=== PATIENT | female | born 2000 ===

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

== ENCOUNTER 2018-08-13 23:31 | Emergency (ER) | payer MEDICAID ==
[2018-08-13 23:42] VITALS: RESP 16; O2SAT 98
[2018-08-14] MEDS ORDERED: Albuterol-Ipratrop 3 mg / 0.5 (3 ml) UD IH STA (00:28)
--- NOTE | 2018-08-14 00:28 | ED PDOC ---
HPI: CCC, URI, Sore Throat Time Seen by Provider: 08/13/18 23:58 Chief Complaint (Nursing): Dizziness/Lightheaded Chief Complaint (Provider): cough, congestion History Per: Patient History/Exam Limitations: no limitations Onset/Duration Of Symptoms: Days (1 weeks) Associated Symptoms: Cough, Sputum, Nasal Congestion Additional Complaint(s): 18 y/o female presents for evaluation of "painful" cough and congestion x 1 week. Associated headache x 3 days. Denies fever, vomiting, chest pain, shortness of breath, palpitations, abdominal pain, changes in bowel movements, urinary symptoms, recent travel, sick contacts. Past Medical History Reviewed: Historical Data, Nursing Documentation, Vital Signs Vital Signs: Last Vital Signs Temp 98.4 F 08/13/18 23:40 Pulse 96 H 08/13/18 23:40 Resp 16 08/13/18 23:40 BP 123/75 08/13/18 23:40 Pulse Ox 98 08/13/18 23:40 - Medical History PMH: No Chronic Diseases - Surgical History Surgical History: Appendectomy (2011) - Family History Family History: States: Unknown Family Hx - Home Medications Home Medications: Ambulatory Orders Medication Instructions Recorded Dicyclomine [Bentyl] 20 mg PO BID PRN #30 tab 05/29/17 Famotidine [Pepcid] 40 mg PO DAILY PRN #14 tab 05/29/17 Ondansetron ODT [Zofran ODT] 1 odt PO Q6 PRN #30 odt 05/29/17 Famotidine [Pepcid] 40 mg PO DAILY PRN #10 tablet 07/19/18 Naproxen 500 mg PO BID PRN #20 tab 07/19/18 Albuterol HFA [Ventolin HFA 90 1 puff IH Q4 PRN #1 inh 08/14/18 mcg/actuation (8 g)] Fluticasone Nasal [Flonase] 1 actuation NS BID #1 bottle 08/14/18 Guaifenesin/Pseudoephedrne HCl 1 - 2 tab PO Q12 PRN #20 ter 08/14/18 [Mucinex D 600 mg-60 mg] Ibuprofen [Motrin Tab] 1 tab PO Q6 PRN #15 tab 08/14/18 - Allergies Allergies/Adverse Reactions: Allergies Allergy/AdvReac Type Severity Reaction Status Date / Time No Known Allergies Allergy Verified 08/13/18 23:40 Review of Systems ROS Statement: Except As Marked, All Systems Reviewed And Found Negative ENT: Positive for: Nose Congestion Respiratory: Positive for: Cough Neurological: Positive for: Headache Physical Exam - Reviewed Nursing Documentation Reviewed: Yes Vital Signs Reviewed: Yes - Physical Exam Appears: Positive for: Well, Non-toxic, No Acute Distress Head Exam: Positive for: ATRAUMATIC, NORMAL INSPECTION, NORMOCEPHALIC Skin: Positive for: Normal Color Eye Exam: Positive for: Normal appearance ENT: Positive for: Nasal Congestion Cardiovascular/Chest: Positive for: Regular Rate, Rhythm Respiratory: Positive for: Normal Breath Sounds Gastrointestinal/Abdominal: Positive for: Normal Exam Back: Positive for: Normal Inspection Extremity: Positive for: Normal ROM Neurologic/Psych: Positive for: Alert, Oriented (x3) - ECG O2 Sat by Pulse Oximetry: 98 - Progress ED Course And Treament: flu, ibuprofen, duoneb Patient educated on findings, discharged with rx flonase, mucinex D, albuterol HFA, ibuprofen Advised fluids, rest Follow up PMD within 2-3 days Return precautions given Disposition - Clinical Impression Clinical Impression: Upper respiratory infection - Patient ED Disposition Is Patient to be Admitted: No Counseled Patient/Family Regarding: Studies Performed, Diagnosis, Need For Followup, Rx Given - Disposition Disposition: Routine/Home Disposition Time: 01:08 Condition: IMPROVED Prescriptions: Albuterol HFA [Ventolin HFA 90 mcg/actuation (8 g)] 1 puff IH Q4 PRN #1 inh PRN Reason: Wheezing Fluticasone Nasal [Flonase] 1 actuation NS BID #1 bottle Guaifenesin/Pseudoephedrne HCl [Mucinex D 600 mg-60 mg] 1 - 2 tab PO Q12 PRN #20 ter PRN Reason: congestion Ibuprofen [Motrin Tab] 1 tab PO Q6 PRN #15 tab PRN Reason: Pain, Moderate (4-7) Instructions: Viral Upper Respiratory Infection, Adult (DC) Forms: [employer] (Afghan)
[2018-08-14] MEDS ORDERED: Albuterol-Ipratrop 3 mg / 0.5 (3 ml) UD ONE (00:42)
[2018-08-14 01:25] VITALS: BP 103/57; PULSE 95; TEMP 98.6
== END 2018-08-14 01:30 | disposition home or self-care (01) ==
LOC: H.ER 23:31
DX: J06.9 Acute upper respiratory infection, unspecified (principal)

== ENCOUNTER 2018-09-25 14:54 | Emergency (ER) | payer MEDICAID ==
[2018-09-25] MEDS ORDERED: Alum-Mag Hydrox-Simethicone Susp (30 mL) PO STA (16:29)
--- NOTE | 2018-09-25 16:33 | ED PDOC ---
HPI: Abdomen Time Seen by Provider: 09/25/18 16:23 Chief Complaint (Nursing): Abdominal Pain Chief Complaint (Provider): Abdominal Pain History Per: Patient History/Exam Limitations: no limitations Onset/Duration Of Symptoms: Days (x1) Current Symptoms Are (Timing): Still Present Location Of Pain/Discomfort: Epigastric, LUQ Additional Complaint(s): Segundo Hubbard is a 18 year old female with a past medical history of migraines who is presenting to the ED for evaluation of left sided epigastric pain and chest pain onset yesterday. Patient states that she also experienced a nose bleed yesterday as well as a headache, similar to past episodes, and dizziness. She reports mild difficulty breathing and states that she took Motrin for pain. Chest pain is non-pleuritic and non-exertional. Of note, patient is currently on her period and also requesting a work note. PMD: none provided Past Medical History Reviewed: Historical Data, Nursing Documentation, Vital Signs Vital Signs: Last Vital Signs Temp 98.3 F 09/25/18 15:23 Pulse 68 09/25/18 15:23 Resp 18 09/25/18 15:23 BP 112/60 09/25/18 15:23 Pulse Ox 98 09/25/18 15:23 - Medical History PMH: Migraine - Surgical History Surgical History: Appendectomy (2011) - Family History Family History: States: Unknown Family Hx - Social History Current smoker - smoking cessation education provided: No Alcohol: Social Drugs: Denies - Home Medications Home Medications: Ambulatory Orders Medication Instructions Recorded Dicyclomine [Bentyl] 20 mg PO BID PRN #30 tab 05/29/17 Famotidine [Pepcid] 40 mg PO DAILY PRN #14 tab 05/29/17 Ondansetron ODT [Zofran ODT] 1 odt PO Q6 PRN #30 odt 05/29/17 Naproxen 500 mg PO BID PRN #20 tab 07/19/18 Albuterol HFA [Ventolin HFA 90 1 puff IH Q4 PRN #1 inh 08/14/18 mcg/actuation (8 g)] Fluticasone Nasal [Flonase] 1 actuation NS BID #1 bottle 08/14/18 Guaifenesin/Pseudoephedrne HCl 1 - 2 tab PO Q12 PRN #20 ter 08/14/18 [Mucinex D 600 mg-60 mg] Ibuprofen [Motrin Tab] 1 tab PO Q6 PRN #15 tab 08/14/18 Famotidine [Pepcid] 40 mg PO DAILY PRN #10 tablet 09/25/18 - Allergies Allergies/Adverse Reactions: Allergies Allergy/AdvReac Type Severity Reaction Status Date / Time No Known Allergies Allergy Verified 08/13/18 23:40 Review of Systems ROS Statement: Except As Marked, All Systems Reviewed And Found Negative Cardiovascular: Positive for: Chest Pain Respiratory: Positive for: Shortness of Breath Gastrointestinal: Positive for: Abdominal Pain Neurological: Positive for: Headache, Dizziness Physical Exam - Reviewed Nursing Documentation Reviewed: Yes Vital Signs Reviewed: Yes - Physical Exam Appears: Positive for: Non-toxic, No Acute Distress Head Exam: Positive for: ATRAUMATIC, NORMAL INSPECTION, NORMOCEPHALIC Skin: Positive for: Normal Color, Warm, DRY Eye Exam: Positive for: EOMI, Normal appearance, PERRL ENT: Positive for: Normal ENT Inspection Neck: Positive for: Normal, Painless ROM, Supple Cardiovascular/Chest: Positive for: Regular Rate, Rhythm. Negative for: Murmur Respiratory: Positive for: Normal Breath Sounds. Negative for: Respiratory Distress Gastrointestinal/Abdominal: Positive for: Soft, Tenderness (mild epigastric tenderness) Back: Positive for: Normal Inspection. Negative for: L CVA Tenderness, R CVA Tenderness, Vertebral Tenderness Extremity: Positive for: Normal ROM. Negative for: Deformity, Swelling Neurologic/Psych: Positive for: Alert, Oriented. Negative for: Motor/Sensory Deficits - Laboratory Results Result Diagrams: 09/25/18 16:56 09/25/18 16:56 - ECG O2 Sat by Pulse Oximetry: 98 (RA) Pulse Ox Interpretation: Normal - Progress Re-evaluation Time: 19:53 Condition: Re-examined, Improved Medical Decision Making Medical Decision Making: Time: 16:29 Impression: abdominal pain, associated headache Differentials: Migraine, gastritis, pancreatitis, biliary disease, rule out UTI Plan: --CMP --Lipase --ED Urine --ED Urine Dipstick --CBC --Lidocaine 15 ml PO --Maalox 30 ml PO --Pepcid 20 mg IVP --Reglan 50 ml IVPB Scribe Attestation: Documented by, Mayelin Menchaca acting as a scribe for Kathya Smalls MD. Provider Scribe Attestation: All medical record entries made by the Scribe were at my direction and personally dictated by me. I have reviewed the chart and agree that the record accurately reflects my personal performance of the history, physical exam, medical decision making, and the department course for this patient. I have also personally directed, reviewed, and agree with the discharge instructions and disposition. Disposition - Clinical Impression Clinical Impression: Headache, Abdominal pain - Patient ED Disposition Is Patient to be Admitted: No Doctor Will See Patient In The: Office Counseled Patient/Family Regarding: Studies Performed, Diagnosis, Need For Followup - Disposition Referrals: [facility] [Outside] Disposition: Routine/Home Disposition Time: 19:54 Condition: GOOD Additional Instructions: SEGUNDO HUBBARD, thank you for letting us take care of you today. Your provider was Kathya Smalls MD and you were treated for HEAD/ABD PAIN, NOSE BLEED. The emergency medical care you received today was directed at your acute sy mptoms. If you were prescribed any medication, please fill it and take as directed. It may take several days for your symptoms to resolve. Return to the Emergency Department if your symptoms worsen, do not improve, or if you have any other problems. Please contact your doctor or call one of the physicians/clinics you have been referred to that are listed on the Patient Visit Information form that is included in your discharge packet. Bring any paperwork you were given at discharge with you along with any medications you are taking to your follow up visit. Our treatment cannot replace ongoing medical care by a primary care provider outside of the emergency department. Thank you for allowing the [facility] team to be part of your care today. If you had an X-Ray or CT scan: A Radiologist will review the ED reading if any change in treatment is needed we will contact you. If you had a blood, urine, or wound culture: It will take several days for the results, if any change in treatment is needed we will contact you. If you had an STI test: It will take 48 hours for the results. Please call after 1 week if you have not heard back. Prescriptions: Famotidine [Pepcid] 40 mg PO DAILY PRN #10 tablet PRN Reason: Dyspepsia Instructions: Migraine Headache (DC), Stomach Ache and Stomach Upset
[2018-09-25 17:06] LABS: BASO % 0.8 % (0.0-2.0); EOS # 0.2 K/uL (0.0-0.7); EOS % 4.6 % (0.0-4.0); HEMOGLOBIN 11.4 g/dL (12.0-16.0); LYMPH # 1.7 K/uL (1.0-4.3); LYMPH % 33.2 % (20.0-40.0); MEAN CELL VOLUME 98.3 fl (81.0-99.0); MEAN CORPUSCULAR HGB CONC 34.6 g/dL (33.0-37.0); MONO # 0.4 K/uL (0.0-0.8); MONO % 7.3 % (0.0-10.0); NEUT # 2.7 K/uL (1.8-7.0); NEUT % 54.1 % (50.0-75.0); RBC 3.34 Mil/uL (3.80-5.20); RED CELL DISTRIBUTION WIDTH 12.3 % (11.5-14.5); WHITE BLOOD COUNT 5.1 K/uL (4.8-10.8)
[2018-09-25 17:33] LABS: ALB/GLOB RATIO 1.2 (1.0-2.1); ALBUMIN 3.8 g/dL (3.5-5.0); ALT/SGPT 18 U/L (9-52); AST/SGOT 20 U/L (14-36); BLOOD UREA NITROGEN 16 mg/dl (7-17); CALCIUM 9.1 mg/dL (8.4-10.2); GFR NON-AFRICAN AMERICAN > 60; LIPASE 66 U/L (23-300)
[2018-09-25] MEDS ORDERED: Alum-Mag Hydrox-Simethicone Susp (30 mL) ONE (17:44)
[2018-09-25 20:11] VITALS: BP 106/60; PULSE 65; RESP 16; TEMP 98.7; O2SAT 99
== END 2018-09-25 20:06 | disposition home or self-care (01) ==
LOC: H.ER 14:54
DX: R51 Headache (principal); R10.9 Unspecified abdominal pain
CPT/HCPCS: 80053; 81025; 83690; 85025; 96374; 99283; J2765

== ENCOUNTER 2018-10-04 20:15 | Emergency (ER) | payer MEDICAID, OTHER ==
--- NOTE | 2018-10-04 20:38 | ED PDOC ---
HPI: Abdomen Time Seen by Provider: 10/04/18 20:26 Chief Complaint (Nursing): Abdominal Pain Chief Complaint (Provider): abdominal pain History Per: Patient History/Exam Limitations: no limitations Onset/Duration Of Symptoms: Days (2 weeks) Current Symptoms Are (Timing): Still Present Location Of Pain/Discomfort: RUQ, Epigastric, LUQ Associated Symptoms: Nausea Last Bowel Movement: Yesterday Additional Complaint(s): 18 y/o female presents for evaluation of upper abdominal pain x 2 weeks. P atient states pain radiates up into center of chest, worsened by food, with associated nausea. Patient states she was seen in ED for similar 2 weeks ago and prescribed Pepcid daily, which is not helping. Denies fever, vomiting, shortness of breath, palpitations, changes in bowel movements, urinary symptoms. Patient has not followed up with a doctor for symptoms thus far. Past Medical History Reviewed: Historical Data, Nursing Documentation, Vital Signs Vital Signs: Last Vital Signs Temp 98.2 F 10/04/18 20:24 Pulse 80 10/04/18 20:24 Resp 16 10/04/18 20:24 BP 109/58 L 10/04/18 20:24 Pulse Ox 100 10/04/18 20:24 - Medical History PMH: Migraine - Surgical History Surgical History: Appendectomy (2011) - Family History Family History: States: Unknown Family Hx - Living Arrangements Living Arrangements: With Family - Home Medications Home Medications: Ambulatory Orders Medication Instructions Recorded Dicyclomine [Bentyl] 20 mg PO BID PRN #30 tab 05/29/17 Famotidine [Pepcid] 40 mg PO DAILY PRN #14 tab 05/29/17 Ondansetron ODT [Zofran ODT] 1 odt PO Q6 PRN #30 odt 05/29/17 Naproxen 500 mg PO BID PRN #20 tab 07/19/18 Albuterol HFA [Ventolin HFA 90 1 puff IH Q4 PRN #1 inh 08/14/18 mcg/actuation (8 g)] Fluticasone Nasal [Flonase] 1 actuation NS BID #1 bottle 08/14/18 Guaifenesin/Pseudoephedrne HCl 1 - 2 tab PO Q12 PRN #20 ter 08/14/18 [Mucinex D 600 mg-60 mg] Ibuprofen [Motrin Tab] 1 tab PO Q6 PRN #15 tab 08/14/18 Famotidine [Pepcid] 40 mg PO DAILY PRN #10 tablet 09/25/18 Esomeprazole Magnesium [Nexium] 20 mg PO DAILY #10 capsule. 10/04/18 Ondansetron [Zofran] 4 mg PO Q8H PRN #10 tab 10/04/18 - Allergies Allergies/Adverse Reactions: Allergies Allergy/AdvReac Type Severity Reaction Status Date / Time No Known Allergies Allergy Verified 10/04/18 20:29 Review of Systems ROS Statement: Except As Marked, All Systems Reviewed And Found Negative Cardiovascular: Positive for: Chest Pain Gastrointestinal: Positive for: Nausea, Abdominal Pain Physical Exam - Reviewed Nursing Documentation Reviewed: Yes Vital Signs Reviewed: Yes - Physical Exam Appears: Positive for: Well, Non-toxic, No Acute Distress Head Exam: Positive for: ATRAUMATIC, NORMAL INSPECTION, NORMOCEPHALIC Skin: Positive for: Normal Color Eye Exam: Positive for: Normal appearance ENT: Positive for: Normal ENT Inspection Cardiovascular/Chest: Positive for: Regular Rate, Rhythm Respiratory: Positive for: Normal Breath Sounds Gastrointestinal/Abdominal: Positive for: Bowel Sounds, Soft, Tenderness (epigastric, RUQ, LUQ) Back: Positive for: Normal Inspection Extremity: Positive for: Normal ROM Neurologic/Psych: Positive for: Alert, Oriented (x3) - Laboratory Results Result Diagrams: 10/04/18 21:18 10/04/18 21:18 - ECG O2 Sat by Pulse Oximetry: 100 - Progress ED Course And Treament: -cbc -cmp -lipase -urinalysis -IV pepcid -IV zofran -IV toradol -right upper quadrant u/s Clinical history: Right upper quadrant pain. Findings: The pancreas is limited in visualization secondary to overlying bowel gas, but appears grossly unremarkable. There is normal portal venous blood flow. The liver demonstrates uniform echotexture and echogenicity, with no mass lesions. The gallbladder is unremarkable. The common bile duct measures 3 mm and is within normal limits. The right kidney measures 9.1 cm in length and is unremarkable. There is no ascites. Impression: Unremarkable ultrasound examination of the right upper quadrant. On re-eval, patient resting comfortably. States pain improved Patient educated on findings, discharged with rx Nexium, Zofran Advised diet modification Follow up PMD/GI Return precautions given Disposition - Clinical Impression Clinical Impression: Abdominal pain - Patient ED Disposition Is Patient to be Admitted: No Counseled Patient/Family Regarding: Studies Performed, Diagnosis, Need For Followup, Rx Given - Disposition Referrals: [facility] [Outside] Disposition: Routine/Home Disposition Time: 22:04 Condition: IMPROVED Prescriptions: Esomeprazole Magnesium [Nexium] 20 mg PO DAILY #10 capsule. Ondansetron [Zofran] 4 mg PO Q8H PRN #10 tab PRN Reason: Nausea/Vomiting Instructions: Acute Abdomen (Belly Pain), Adult (DC)
[2018-10-04 21:12] LABS: SQUAMOUS EPITHIAL 3 /hpf (0-5); URINE BILIRUBIN NEGATIVE (NEGATIVE); URINE CLARITY CLEAR (Clear); URINE COLOR STRAW (YELLOW); URINE GLUCOSE (UA) NEG (NEGATIVE); URINE LEUKOCYTE ESTERASE NEG Leu/uL (Negative); URINE PROTEIN NEGATIVE (NEGATIVE); URINE UROBILINOGEN 0.2-1.0 mg/dL (0.2-1.0)
[2018-10-04 21:13] LABS: URINE BLOOD SMALL (NEGATIVE)
[2018-10-04 21:32] LABS: BASO # 0.1 K/uL (0.0-0.2); BASO % 1.1 % (0.0-2.0); EOS # 0.2 K/uL (0.0-0.7); EOS % 2.5 % (0.0-4.0); HEMOGLOBIN 11.7 g/dL (12.0-16.0); LYMPH # 2.3 K/uL (1.0-4.3); LYMPH % 37.7 % (20.0-40.0); MEAN CELL VOLUME 96.8 fl (81.0-99.0); MEAN CORPUSCULAR HEMOGLOBIN 33.4 pg (27.0-31.0); MEAN CORPUSCULAR HGB CONC 34.5 g/dL (33.0-37.0); MEAN PLATELET VOLUME 9.5 fl (7.2-11.7); MONO # 0.5 K/uL (0.0-0.8); NEUT # 3.1 K/uL (1.8-7.0); NEUT % 50.7 % (50.0-75.0); NRBC % 0.1 % (0.0-0.0); RBC 3.49 Mil/uL (3.80-5.20); RED CELL DISTRIBUTION WIDTH 12.3 % (11.5-14.5); WHITE BLOOD COUNT 6.1 K/uL (4.8-10.8)
[2018-10-04 21:46] LABS: ALB/GLOB RATIO 1.2 (1.0-2.1); ALT/SGPT 24 U/L (9-52); AST/SGOT 25 U/L (14-36); BLOOD UREA NITROGEN 14 mg/dl (7-17); CALCIUM 9.3 mg/dL (8.4-10.2); GFR NON-AFRICAN AMERICAN > 60; LIPASE 103 U/L (23-300)
[2018-10-04 23:06] VITALS: BP 103/57; PULSE 63; RESP 18; TEMP 98.3; O2SAT 99
--- NOTE | 2018-10-05 09:20 | US ---
Date of service: 10/04/2018 HISTORY: upper abd pain COMPARISON: None. TECHNIQUE: Sonographic evaluation of the right upper quadrant of the abdomen. FINDINGS: LIVER: Measures cm in length. Normal echogenicity of the liver parenchyma. No mass. No intrahepatic bile duct dilatation. GALLBLADDER: Unremarkable. No gallstones. COMMON BILE DUCT: Measures mm. No stones. No dilatation. PANCREAS: Unremarkable as visualized. No mass. No ductal dilatation. RIGHT KIDNEY: Measures cm in length. Normal echogenicity. No calculus, mass, or hydronephrosis. AORTA: No aneurysmal dilatation. IVC: Unremarkable. OTHER FINDINGS: None . IMPRESSION: Normal exam.
--- NOTE | 2018-10-10 12:05 | CARD ---
APPROVED REPORT Date of service: 10/04/2018 EKG Measurement Heart [id number] <Conclusion> Normal sinus rhythm Normal ECG
== END 2018-10-04 22:42 | disposition home or self-care (01) ==
LOC: H.ER 20:15
DX: R10.13 Epigastric pain (principal)
CPT/HCPCS: 76705; 80053; 81003; 81025; 83690; 84484; 85025; 93005; 96374; 99284; J1885; J2405